=== PATIENT | female | born 1985 | race Caucasian/White ===

== ENCOUNTER 2020-03-27 02:45 | Inpatient (IN) | payer BC ==
[2020-03-27 04:30] LABS: BASO % 0.4 % (0-2.0); HEMATOCRIT 35.8 % (32.4-45.2); HEMOGLOBIN 12.2 GM/dL (10.7-15.3); LYMPH % 21.3 % (8-40); MCHC 34.1 g/dl (32.0-36.0); MEAN CELL VOLUME 90.9 fl (80-96); MEAN PLT VOLUME 11.1 fl (7.5-11.1); MONO % 6.6 % (3.8-10.2); NEUT % 70.7 % (42.8-82.8); PLATELET COUNT 177 K/MM3 (134-434); RBC 3.94 M/mm3 (3.60-5.2); RDW 13.7 % (11.6-15.6); WHITE BLOOD COUNT 11.6 K/mm3 (4.0-10.0)
[2020-03-27 04:41] LABS: INR 0.88 (0.83-1.09); PROTHROMBIN TIME (PATIENT) 10.4 SEC (9.7-13.0)
[2020-03-27 04:44] LABS: ACTIVATED PTT 26.1 SECONDS (25.2-36.5)
[2020-03-27] MEDS ORDERED: DEXTROSE 5%-LACTATED RINGERS 1,000 ML IV SCH (04:45)
[2020-03-27 04:49] LABS: BLOOD UREA NITROGEN 13.6 mg/dL (7-18); CREATININE 1.1 mg/dL (0.55-1.3)
[2020-03-27 04:59] VITALS: BMI 28.1
[2020-03-27] MEDS ORDERED: PROMETHAZINE HCL 25 MG/1 ML VIAL ONE (06:09)
[2020-03-27] MEDS ORDERED: BUTORPHANOL TARTRATE 2 MG/ML VIAL ONE (06:09)
[2020-03-27] MEDS ORDERED: PROMETHAZINE HCL 25 MG/1 ML VIAL IVPB ONE (06:15)
[2020-03-27] MEDS ORDERED: BUTORPHANOL TARTRATE 2 MG/ML VIAL IVPB ONE (06:15)
--- NOTE | 2020-03-27 08:28 | HP ---
Past Medical History - Primary Care Physician PCP:: Avelino Childs - Admission Chief Complaint: 35yo P0 with at EGA 39w 2d admitted with SROM in spontaneous labor. History of Present Illness: at EGA 39w 2d with SROM. Spont labor Vaginal GBS negative Sequential screen (+) for increased risk of Down Syndrome. 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: No: Alzheimer's, CVA, Dementia, Migraine, Multiple Sclerosis, Peripheral Neuropathy, Parkinson's, Seizure, Syncope, TIA, Vertigo, Other Cardiovascular: No: AFIB, Aneurysm, Aortic Insufficiency, Aortic Stenosis, CAD, CHF, Deep Vein Thrombosis, HTN, Hyperlipdemia, SC, Mitral Insufficiency, Mitral Stenosis, Murmur, Pulmonary Hypertension, Other Pulmonary: No: Asthma, Bronchitis, Cancer, COPD, O2 Dependent, Pneumonia, Previously Intubated, Pulmonary Embolus, Pulmonary Fibrosis, Sleep Apnea, Other Gastrointestinal: No: Ascites, Cancer, Constipation, Crohn's Disease, Diverticu litis, Diverticulosis, Esophageal Varices, Gastritis, GERD, GI Bleed, Hemorrhoids, Hiatal Hernia, Inflamatory Bowel Disease, Irritable Bowel Disease, Pancreatitis, Peptic Ulcer Disease, Ulcerative Colitis, Other Hepatobiliary: No: Cirrhosis, Cholelithiasis, Cholecystitis, Ch oledocholithiasis, Hepatitis A, Hepatitis B, Hepatitis C, Other Renal/: No: Renal Failure, Renal Inusuff, BPH, Cancer, Hematuria, Hemodialysis, Neurogenic Bladder, Renal Calculi, UTI, Other Reproductive: No: Ectopic , Endometriosis, Fibroids, PID, Polycystic Ovary Syndrome, Postmenopausal, Other ...: 2 ...Para: 0 ...Term: 0 ...: 0 ...Spon : 0 ...Induced : 1 ...Living Children: 0 ...Multiple Gestation: 0 ...LMP: 06/27/19 ... Weeks Gestation by Dates: 39.0 ...EDC by Dates: 04/03/20 ...EDC by Sono: 04/01/20 Heme/Onc: Yes: Anemia Infectious Disease: No: AIDS, C-Diff, Herpes Zoster, HIV, MRSA, STD's, Tuberculosis, VREF, Other Psych: No: Addictions, Anxiety, Bipolar, Depression, Panic, Psychosis, Schizophrenia, Other Musculoskeletal: No: Bursitis, Chronic low back pain, Hemiparesis, Hemiplegia, Osteoarthritis, Paraplegia, Other Rheumatology: No: Fibromyalgia, Gout, Lupus, Rheumatoid Arthritis, Sarcoidosis, Vasculitis, Other ENT: No: Allergic Rhinitis, Sinusitis, Other Dermatology: No: Basal Cell, Cellulitis, Eczema, Melanoma, Psoriasis, Squamous Cell, Other - Past Surgical History Past Surgical History: Yes: None Hx Myomectomy: No Hx Transabdominal Cerclage: No - Smoking History Smoking history: Never smoked Have you smoked in the past 12 months: No Aproximately how many cigarettes per day: 1 - Alcohol/Substance Use Hx Alcohol Use: No - Social History Usual Living Arrangement: Yes: With Significant Other Do you think of yourself as: Straight/Heterosexual ADL: Independent 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 [employer] Home Medications - Allergies Allergies/Adverse Reactions: Allergies Allergy/AdvReac Type Severity Reaction Status Date / Time sulfamethoxazole Allergy Severe Hives Unverified 07/18/15 16:57 [From Bactrim] trimethoprim [From Bactrim] Allergy Severe Hives Unverified 07/18/15 16:57 tree nut [Tree Nut] Allergy Verified 07/18/13 22:29 - Home Medications Home Medications: Ambulatory Orders Vitamins (Sjr) - 1 tab PO DAILY 03/27/20 Family Medical History Family Hx Cancer: Grandfather (maternal) (pancreatic), Grandfather (paternal) (lung), Mother (breast), Father (lung) Review of Systems - Review of Systems Constitutional: reports: Other (contraction, leaking fluids) Eyes: reports: No Symptoms HENT: reports: No Symptoms Neck: reports: No Symptoms Cardiovascular: reports: No Symptoms Respiratory: reports: No Symptoms Gastrointestinal: reports: No Symptoms Genitourinary: reports: No Symptoms Breasts: reports: No Symptoms Reported Musculoskeletal: reports: No Symptoms Integumentary: reports: No Symptoms Neurological: reports: No Symptoms Endocrine: reports: No Symptoms Hematology/Lymphatic: reports: No Symptoms Psychiatric: reports: No Symptoms Pain Intensity: 6 Physical Exam - Maternity Vital Signs: Vital Signs Temperature 98.4 F 03/27/20 07:00 Pulse Rate 71 03/27/20 07:20 Respiratory Rate 20 03/27/20 07:20 Blood Pressure 124/83 03/27/20 07:20 O2 Sat by Pulse Oximetry (%) Constitutional: Yes: Well Nourished, No Distress, Calm Eyes: Yes: WNL, Conjunctiva Clear, EOM Intact HENT: Yes: WNL, Atraumatic, Normocephalic Neck: Yes: WNL, Supple, Trachea Midline Cardiovascular: Yes: WNL, Regular Rate and Rhythm Breast(s): Yes: WNL - Abdominal Exam/OB Fundal Height: 38 Number of Fetuses: Single Presentation: Vertex Contractions: Yes Regularity: Irregular Intensity: Mild/Mod Monitor Mode: External Heart Rate (range): 120 Heart Rate Location: Midline Category: I Accelerations: Non-Uniform Decelerations: None - Vaginal Exam/OB Vaginal Bleeding: No Speculum Exam: No Dilatation (cm): 1 Effacement (%): 90 Amniotic Membrane Status: Leaking Nitrazine Test: Positive Amniotic Fluid: Yes: Clear Presentation: Vertex/Position Station: -1 (Gynecoid pelvimetry, EFW ~3100 grams) - Physical Exam Musculoskeletal: Yes: WNL Extremities: Yes: WNL Edema: No Integumentary: Yes: WNL Deep Tendon Reflex Grade: Normal +2 ...Motor Strength: WNL Psychiatric: Yes: WNL, Alert, Oriented - Labs Lab Results: CBC, BMP 03/27/20 04:00 03/27/20 04:00 Hemorrhage Risk Assessment - Risk Factors Medium Risk Factors: Yes: None High Risk Factors: Yes: None Risk Score: 1 Risk Level: Medium Risk Imaging - Results Ultrasound: Report Reviewed Assessment/Plan 35yo P0 with at EGA 39w 2d admitted with SROM in spontaneous labor. Fetus with Category I tracing. The pt is in early spontaneous labor, with irregular contractions. Plan to augment contractions with pitocin. Pt with gynecoid pelvimetry. Plan of care and risks were discussed.
[2020-03-27] MEDS ORDERED: ELECTROLYTE-148 SOLN 1,000 ML IV SCH (08:30)
[2020-03-27] MEDS ORDERED: OXYTOCIN 30 UNITS in 0.9% NS 30 UNIT/500 ML INFUS.BAG IVPB SCH (08:45)
[2020-03-27 08:56] LABS: POC NITRAZINE POS
[2020-03-27] MEDS ORDERED: PCA PUMP NR ONE (09:19)
[2020-03-27] MEDS ORDERED: FENTANYL/BUPIVACAINE/NS/PF - PCEA - 50 ML DISP.SYRIN EP ONE (09:19)
[2020-03-27] MEDS ORDERED: NALOXONE HCL 0.4 MG/ML VIAL IVPUSH PRN (09:41)
[2020-03-27] MEDS ORDERED: FENTANYL/BUPIVACAINE/NS/PF - PCEA - 50 ML DISP.SYRIN EP SCH (09:45)
[2020-03-27] MEDS ORDERED: BUPIVACAINE HCL/PF 0.25% (2.5MG/ML) 10 ML VIAL ONE ×2 (10:18→12:32)
[2020-03-27] MEDS ORDERED: OXYTOCIN 20 UNITS in 0.9% NS 20 UNIT/1,000 ML INFUS.BAG IV ONE (13:00)
[2020-03-27] MEDS ORDERED: LIDOCAINE HCL 1% PRESERVATIVE FREE - 30ML VIAL ONE (13:00)
[2020-03-27] MEDS ORDERED: METHYLERGONOVINE MALEATE 0.2 MG/1 ML AMP IM PRN (17:30)
[2020-03-27] MEDS ORDERED: BISACODYL 10 MG SUPP.RECT RC PRN (17:30)
[2020-03-27] MEDS ORDERED: WITCH HAZEL 50% (TUCKS) 40 PAD/JAR PAD TP PRN (17:30)
[2020-03-27] MEDS ORDERED: BENZOCAINE 28 GM HEMORRHOIDAL OINTMENT TP PRN (17:30)
[2020-03-27] MEDS ORDERED: BENZOCAINE 20% 57 GM BOTTLE TP PRN (17:30)
[2020-03-27] MEDS ORDERED: OXYTOCIN 20 UNITS in 0.9% NS 20 UNIT/1,000 ML INFUS.BAG IV SCH (17:30)
--- NOTE | 2020-03-27 17:30 | PN ---
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
[2020-03-28] MEDS: IBUPROFEN 600 MG TABLET (FP) PO PRN ×2 (01:01→08:45)
[2020-03-28] MEDS: ACETAMINOPHEN 325 MG TABLET (FP) PO PRN ×2 (01:01→08:46)
[2020-03-28 07:45] LABS: BASO % 0.2 % (0-2.0); EOS % 1.1 % (0-4.5); HEMATOCRIT 34.6 % (32.4-45.2); HEMOGLOBIN 11.8 GM/dL (10.7-15.3); LYMPH % 20.7 % (8-40); MCH 31.7 pg (25.7-33.7); MCHC 34.2 g/dl (32.0-36.0); MEAN CELL VOLUME 92.5 fl (80-96); MEAN PLT VOLUME 11.5 fl (7.5-11.1); MONO % 5.3 % (3.8-10.2); NEUT % 72.7 % (42.8-82.8); PLATELET COUNT 150 K/MM3 (134-434); RBC 3.74 M/mm3 (3.60-5.2); RDW 13.8 % (11.6-15.6); WHITE BLOOD COUNT 11.9 K/mm3 (4.0-10.0)
[2020-03-28] MEDS: PRENATAL VITAMINS W/ FOLIC ACID TABLET (FP) PO SCH (09:11)
--- NOTE | 2020-03-28 10:36 | PN ---
Post Progress Note - Subjective Subjective: Patient without acute complaints. Reports tolerating oral intake without nausea or vomiting. Ambulating without dizziness. Denies fevers or chills. Pain well controlled with oral pain medication. Desirs to breastfeed Passing flatus. Post Day: 1 Type of Delivery: Vital Signs: Vital Signs Temperature 97.7 F 03/28/20 06:00 Pulse Rate 69 03/28/20 06:00 Respiratory Rate 18 03/27/20 22:00 Blood Pressure 122/74 03/28/20 06:00 O2 Sat by Pulse Oximetry (%) 95 03/28/20 06:00 Breast Exam: Yes: Soft Uterus: Yes: Fundus Firm, Fundus below umbilicus Abdomen/GI: Yes: Abdomen soft, Passing flatus, Tolerating PO. No: Abdominal Distention, Tender Lochia: Yes: Rubra Lochia, amount: Small Extremities: Yes: Calves non-tender, Edema Activity: Ambulating - Labs Labs: CBC WBC 11.9 K/mm3 (4.0-10.0) H 03/28/20 06:59 RBC 3.74 M/mm3 (3.60-5.2) 03/28/20 06:59 Hgb 11.8 GM/dL (10.7-15.3) 03/28/20 06:59 Hct 34.6 % (32.4-45.2) 03/28/20 06:59 MCV 92.5 fl (80-96) 03/28/20 06:59 MCH 31.7 pg (25.7-33.7) 03/28/20 06:59 MCHC 34.2 g/dl (32.0-36.0) 03/28/20 06:59 RDW 13.8 % (11.6-15.6) 03/28/20 06:59 Plt Count 150 K/MM3 (134-434) 03/28/20 06:59 MPV 11.5 fl (7.5-11.1) H 03/28/20 06:59 Absolute Neuts (auto) 8.6 K/mm3 (1.5-8.0) H 03/28/20 06:59 Neutrophils % 72.7 % (42.8-82.8) 03/28/20 06:59 Lymphocytes % 20.7 % (8-40) 03/28/20 06:59 Monocytes % 5.3 % (3.8-10.2) 03/28/20 06:59 Eosinophils % 1.1 % (0-4.5) 03/28/20 06:59 Basophils % 0.2 % (0-2.0) 03/28/20 06:59 Nucleated RBC % 0 % (0-0) 03/28/20 06:59 Assessment/Plan 35 yoPPD # 1 s/p , afebrile, vital signs stable, doing well 1. Continue routine care. 2. CBC without anemia 3. Rh positive status, no rhogam indicated. 4. Encourage ambulation 5. Continue oral pain medication 6. Anticipate discharge home day #2
[2020-03-28] MEDS ORDERED: SENNOSIDES/DOCUSATE COMBO (SENNA PLUS) TABLET (UD) PO PRN (22:00)
--- NOTE | 2020-03-29 06:42 | DS ---
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 Vital Signs: Vital Signs Temperature 98.5 F 03/28/20 21:13 Pulse Rate 65 03/28/20 21:13 Respiratory Rate 18 03/28/20 21:13 Blood Pressure 139/86 03/28/20 21:13 O2 Sat by Pulse Oximetry (%) 98 03/28/20 21:13 Constitutional: Yes: Well Nourished, No Distress, Calm Eyes: Yes: WNL, Conjunctiva Clear, EOM Intact HENT: Yes: WNL, Atraumatic, Normocephalic Neck: Yes: WNL, Supple, Trachea Midline Cardiovascular: Yes: WNL, Regular Rate and Rhythm Respiratory: Yes: WNL, Regular, CTA Bilaterally Gastrointestinal: Yes: WNL ...Rectal Exam: Yes: WNL Renal/: Yes: WNL ....Post : Yes: Uterus firm, Uterus non-tender, Slight lochia rubra Breast(s): Yes: WNL Musculoskeletal: Yes: WNL Extremities: Yes: WNL Edema: No Integumentary: Yes: WNL Neurological: Yes: WNL, Alert, Oriented ...Motor Strength: WNL Psychiatric: Yes: WNL, Alert, Oriented Labs: CBC, BMP 03/28/20 06:59 03/27/20 04:00 Delivery - Delivery Vaginal Delivery: No Problems, Spontaneous Type of Anesthesia: Epidural Episiotomy/Laceration: Midline, 1st degree (vaginal laceration) EBL (cc): 300 Delivery, Single - Stages of Labor Date 1st Stage Initiatied: 03/27/20 Time 1st Stage Initiated: 06:25 Date 2nd Stage Initiated: 03/27/20 Time 2nd Stage Initiated: 13:30 Date of Delivery: 03/27/20 Time of Delivery: 13:54 Time Placenta Delivered: 14:00 Placenta: Yes: Spontaneous, Normal Configuration - 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 Gender: Male Weight: 6 lb Position: Right, OA Total Hours ROM (Hrs/Mins): 15Hrs/0Mins - 1 Minute Total Score: 9 5 Minutes Total Score: 9 - Feeding Plan Initial Plan: Elected not to breastfeed exclusively throughout hospitalization Benefits of Exclusively reinforced: Yes Discharge Summary Problems reviewed: Yes Reason For Visit: ADMIT-LABOR Procedures: Principal: Hospital Course: no complication Plan of Treatment: follow up office 4 weeks Condition: Good - Instructions Diet, Activity, Other Instructions: regular diet, no intercourse , folow up office 4 weeks, if fever, pain, heavy vaginal bleeding call MD Referrals: Avelino Childs MD [Staff Physician] - Disposition: HOME - Home Medications Comprehensive Discharge Medication List: Ambulatory Orders Vitamins (Sjr) - 1 tab PO DAILY 03/27/20 Ibuprofen [Motrin -] 600 mg PO QID #28 tablet 03/28/20
[2020-03-29] MEDS: ACETAMINOPHEN 325 MG TABLET (FP) PO PRN (07:57)
[2020-03-29] MEDS: IBUPROFEN 600 MG TABLET (FP) PO PRN (07:57)
[2020-03-29] MEDS: PRENATAL VITAMINS W/ FOLIC ACID TABLET (FP) PO SCH (09:22)
[2020-03-29 11:00] VITALS: BP 138/76; PULSE 62; TEMP 98.6
== END 2020-03-29 14:42 | disposition home or self-care (01) | DRG 807 ==
LOC: JDEL 02:45 → JLDR 03:20 → J3W 16:50
PROVIDERS: ADMIT Obstetrics & Gynecology; ATTEND Obstetrics & Gynecology
PROC: 10E0XZZ Delivery of Products of Conception, External Approach (ICD-10-PCS; principal; 2020-03-27)
PROC: 0W8NXZZ Division of Female Perineum, External Approach (ICD-10-PCS; 2020-03-27)
DX: O70.0 First degree perineal laceration during delivery (principal); Z37.0 Single live birth; Z3A.39 39 weeks gestation of pregnancy; Z88.2 Allergy status to sulfonamides; Z91.018 Allergy to other foods; Z86.2 Personal history of diseases of the blood and blood-forming organs and certain disorders involving the immune mechanism
CPT/HCPCS: 36415; 59409; 80048; 83986-QW; 85025; 85610; 85730; 86780; 86850; 86900; 86901; 87389; U0003

== ENCOUNTER 2021-10-06 07:00 | Inpatient (IN) | payer BC, OTHER ==
[2021-10-06] MEDS ORDERED: OXYTOCIN 30 UNITS in 0.9% NS 30 UNIT/500 ML INFUS.BAG IVPB ONE (08:17)
[2021-10-06] MEDS ORDERED: OXYTOCIN 30 UNITS in 0.9% NS 30 UNIT/500 ML INFUS.BAG IVPB SCH (08:30)
[2021-10-06] MEDS ORDERED: ELECTROLYTE-148 SOLN 1,000 ML IV SCH (08:30)
[2021-10-06 09:22] VITALS: BMI 26.6
[2021-10-06] MEDS ORDERED: FENTANYL/BUPIVACAINE/NS/PF - PCEA - 50 ML DISP.SYRIN EP ONE (14:36)
[2021-10-06] MEDS ORDERED: BUPIVACAINE HCL/PF 0.25% (2.5MG/ML) 10 ML VIAL ONE (14:58)
[2021-10-06] MEDS: FENTANYL/BUPIVACAINE/NS/PF - PCEA - 50 ML DISP.SYRIN EP SCH (15:11)
[2021-10-06] MEDS ORDERED: NALOXONE HCL 0.4 MG/ML VIAL IVPUSH PRN (15:23)
[2021-10-06] MEDS ORDERED: OXYTOCIN 20 UNITS in 0.9% NS 20 UNIT/1,000 ML INFUS.BAG IV ONE (16:25)
[2021-10-06] MEDS ORDERED: oxyCODONE HCL 5 MG TABLET PO PRN (16:59)
[2021-10-06] MEDS ORDERED: BENZOCAINE 28 GM HEMORRHOIDAL OINTMENT TP PRN (16:59)
[2021-10-06] MEDS ORDERED: WITCH HAZEL 50% (TUCKS) 40 PAD/JAR PAD TP PRN (16:59)
[2021-10-06] MEDS ORDERED: BISACODYL 10 MG SUPP.RECT RC PRN (16:59)
[2021-10-06] MEDS ORDERED: ACETAMINOPHEN 325 MG TABLET (FP) PO PRN (16:59)
[2021-10-06] MEDS ORDERED: METHYLERGONOVINE MALEATE 0.2 MG/1 ML AMP IM PRN (16:59)
[2021-10-06] MEDS ORDERED: BENZOCAINE 20% 57 GM BOTTLE TP PRN (16:59)
[2021-10-06] MEDS ORDERED: OXYTOCIN 20 UNITS in 0.9% NS 20 UNIT/1,000 ML INFUS.BAG IV SCH (17:00)
[2021-10-07] MEDS: IBUPROFEN 600 MG TABLET (FP) PO PRN ×4 (01:32→23:34)
[2021-10-07 07:43] LABS: BASO % 0.4 % (0-2.0); EOS % 0.8 % (0-4.5); HEMATOCRIT 31.8 % (32.4-45.2); HEMOGLOBIN 10.7 GM/dL (10.7-15.3); LYMPH % 16.2 % (8-40); MCH 30.2 pg (25.7-33.7); MCHC 33.7 g/dl (32.0-36.0); MEAN CELL VOLUME 89.7 fl (80-96); MEAN PLT VOLUME 9.8 fl (7.5-11.1); MONO % 5.6 % (3.8-10.2); PLATELET COUNT 234 10^3/uL (134-434); RBC 3.54 M/mm3 (3.60-5.2); RDW 13.4 % (11.6-15.6); WHITE BLOOD COUNT 14.5 K/mm3 (4.0-10.0)
[2021-10-07] MEDS: PRENATAL VITAMINS W/ FOLIC ACID TABLET (FP) PO SCH (09:15)
[2021-10-07] MEDS ORDERED: SENNOSIDES/DOCUSATE COMBO (SENNA PLUS) TABLET (UD) PO PRN (22:00)
[2021-10-07] MEDS: FENTANYL/BUPIVACAINE/NS/PF - PCEA - 50 ML DISP.SYRIN EP SCH (22:14)
[2021-10-08] MEDS: IBUPROFEN 600 MG TABLET (FP) PO PRN (07:59)
[2021-10-08 09:25] VITALS: BP 115/59; PULSE 99; TEMP 98.5
[2021-10-08] MEDS: PRENATAL VITAMINS W/ FOLIC ACID TABLET (FP) PO SCH (09:25)
== END 2021-10-08 14:00 | disposition home or self-care (01) | DRG 807 ==
LOC: JLDR 07:00 → J3W 20:15
PROVIDERS: ADMIT Obstetrics & Gynecology; ATTEND Obstetrics & Gynecology
PROC: 10E0XZZ Delivery of Products of Conception, External Approach (ICD-10-PCS; principal; 2021-10-06)
PROC: 0KQM0ZZ Repair Perineum Muscle, Open Approach (ICD-10-PCS; 2021-10-06)
PROC: 0W8NXZZ Division of Female Perineum, External Approach (ICD-10-PCS; 2021-10-06)
DX: O48.0 Post-term pregnancy (principal); Z37.0 Single live birth; O70.1 Second degree perineal laceration during delivery; Z3A.40 40 weeks gestation of pregnancy
CPT/HCPCS: 36415; 59409; 85025